=== PATIENT | male | born 1955 | race Caucasian/White ===

== ENCOUNTER 2016-11-29 17:07 | Emergency (ER) | payer OTHER ==
[2016-11-29 17:18] VITALS: BP 120/65; PULSE 67; RESP 66; TEMP 96.8
[2016-11-29] MEDS ORDERED: ASPIRIN 81 MG CHEWABLE TAB PO ONE (17:18)
--- NOTE | 2016-11-29 17:28 | CPEKG ---
Heart Rate: 72 RR Interval: 833 P-R Interval: 240 QRSD Interval: 100 QT Interval: 388 QTC Interval: 425 P Durham: 42 QRS Durham: 73 T Wave Durham: 99 EKG Severity - ABNORMAL ECG - EKG Impression: SINUS RHYTHM EKG Impression: ATRIAL PREMATURE COMPLEX EKG Impression: FIRST DEGREE AV BLOCK EKG Impression: INFERIOR INJURY, PROBABLE EARLY ACUTE INFARCT Electronically Signed By: Sameer Charlton 29-Nov-2016 17:59:31
[2016-11-29] MEDS ORDERED: NITROGLYCERIN 0.4 MG BTL SL ONE (17:34)
--- NOTE | 2016-11-29 17:36 | UCPHY ---
H & P Patient Type: Established Chief Complaint Nursing Narrative: complains of chest pain, sob, dizziness and left arm pain that started this afternoon. Denies n/v Time Seen by Provider: 11/29/16 17:30 HPI/ROS: This patient complains of 8/10 chest pain onset at 1:00 p.m. today at rest radiating to his left arm associated with dyspnea with mild heart palpitations earlier that has resolved. Currently the chest pain which has been constant since onset is 3/10 . He has never had this pain before. ROS: No fevers. No cough. No nausea or vomiting. No lightheadedness. No lower extremity swelling. No belly pain. 10 point ROS is otherwise negative. Source: Patient, Family Exam Limitations: No limitations - Medical/Surgical History PMH: Cardiac bypass in 2006 Hx Asthma: No Hx Chronic Respiratory Disease: No Hx Diabetes: Yes Hx Cardiac Disease: Yes Hx Renal Disease: No Hx Cirrhosis: No Hx Alcoholism: No Hx HIV/AIDS: No Hx Splenectomy or Spleen Trauma: No Other PMH: med hx-htn,diabetes type 1,cholesterol,bypass-2006. [id number] ,tonsilectomy,ortho - Family History Significant Family History: No pertinent family hx - Social History Smoking Status: Heavy smoker Alcohol Use: Occasionally - Physical Exam Exam: General Appearance: Alert, no distress. Eyes: Pupils equal and round no pallor or injection. ENT, Mouth: Mucous membranes moist. Respiratory: There are no retractions, lungs are clear to auscultation. Cardiovascular: Regular rate and rhythm. No murmur gallop rub. No JVD. No peripheral edema. Gastrointestinal: Abdomen is soft and nontender, no masses, bowel sounds normal. Neurological: Alert with no focal deficits Skin: Warm and dry, no rashes. Musculoskeletal: Neck is supple nontender. Extremities are symmetrical, full range of motion. Psychiatric: Mood and affect normal DIFFERENTIAL DIAGNOSIS: After history and physical exam differential diagnosis was considered for FL, coronary syndrome, PE, dissecting thoracic aorta Constitutional: Initial Vital Signs Temperature (C) 36.0 C 11/29/16 17:14 Heart Rate 67 11/29/16 17:14 Respiratory Rate 66 H 11/29/16 17:14 Blood Pressure 120/65 11/29/16 17:14 O2 Sat (%) 97 11/29/16 17:14 O2 Delivery Mode Room Air Allergies/Adverse Reactions: No Known Allergies Allergy (Verified 11/29/16 17:13) Home Medications: Medication Instructions Recorded Carvedilol [Coreg (*)] 3.125 mg PO BIDMEAL 12/27/15 Famotidine [Pepcid 20 MG (*)] 20 mg PO BID 12/27/15 Herbals/Supplements -Info Only 1 ea PO DAILY 12/27/15 Insulin Glargine [Lantus 100 20 units SC DAILY 12/27/15 UNITS/ML (*)] Insulin Glargine [Lantus 100 26 units SC HS 12/27/15 UNITS/ML (*)] Insulin Lispro [humALOG LISPRO 100 6 - 7 unit SC DAILY 12/27/15 units/ml (*)] Insulin Lispro [humALOG LISPRO 100 8 - 10 unit SC DAILY@18 12/27/15 units/ml (*)] Lisinopril [Zestril 10 mg (*)] 10 mg PO DAILY 12/27/15 Simvastatin [Zocor] 20 mg PO HS 12/27/15 Medical Decision Making - Diagnostics EKG Interpretation: 12 lead EKG performed shortly after arrival reveals inferior FL-acute with reciprocal changes in the anterior leads. Please refer to trace master for complete read ED Course/Re-evaluation: IV, aspirin 324, sublingual nitroglycerin, Spoke with Dr. mojica, excepting physician at [facility] to a establish a cardiovascular lab director activation and transfer Patient will be transported emergently to [facility] - Data Points Medications Given: Discontinued Medications Aspirin (Aspirin) 324 mg PO EDNOW ONE Stop: 11/29/16 17:19 Last Admin: 11/29/16 17:22 Dose: 324 mg Departure - Departure Disposition: Acute [facility] Clinical Impression: Inferior FL Condition: Critical Referrals: NONE *PRIMARY CARE P,. [Primary Care Provider] - As per Instructions - PQRS PQRS Measurement: NA
[2016-11-29 17:42] VITALS: O2SAT 98
== END 2016-11-29 17:46 | disposition short-term general hospital (02) ==
LOC: CED 17:07
DX: I21.19 ST elevation (STEMI) myocardial infarction involving other coronary artery of inferior wall (principal); I10 Essential (primary) hypertension; E11.9 Type 2 diabetes mellitus without complications; F17.200 Nicotine dependence, unspecified, uncomplicated; Z95.1 Presence of aortocoronary bypass graft
CPT/HCPCS: 99215-PO; G0463-PO